=== PATIENT | female | born 1990 | race Caucasian/White ===

== ENCOUNTER 2019-01-04 17:20 | Emergency (ER) | payer SELFPAY ==
[~2019-01-04] VITALS: Ht 165.1 cm; Wt 59.0 kg
[2019-01-04 17:45] LABS: BASO % 1 % (0-3); EOS # 0.2 x10^3/uL (0.0-0.7); EOS % 3 % (0-3); HEMOGLOBIN 12.1 g/dL (12.0-15.5); LYMPH # 1.4 x10^3/uL (1.0-4.8); LYMPH % 23 % (24-48); MEAN CORPUSCULAR HEMOGLOBIN 29 pg (25-35); MEAN CORPUSCULAR HGB CONC 35 g/dL (31-37); MEAN CORPUSCULAR VOLUME 84 fL (79-100); MONO # 0.4 x10^3/uL (0.0-1.1); MONO % 6 % (0-9); NEUT # 3.9 x10^3uL (1.8-7.7); NEUT % 67 % (31-73); PLATELET COUNT 279 x10^3/uL (140-400); RED BLOOD COUNT 4.16 x10^6/uL (3.50-5.40); WHITE BLOOD COUNT 5.9 x10^3/uL (4.0-11.0)
--- NOTE | 2019-01-04 17:46 | PHYS DOC ---
Past Medical History Past Medical History: Hypertension, Migraines, Seizure Past Surgical History: No Surgical History Alcohol Use: None Drug Use: None Adult General Chief Complaint Chief Complaint: SYNCOPE HPI HPI Patient is a 28 year old female with history of migraine headaches, seizures as a child, HTN, who presents to the ED today to be evaluated for a syncope episode. Patient states she was at home with her 5 year old child, she states she doesn't really know what happened but she was walking from her kitchen. She states she became lightheaded, she states the next thing she knew she was laying on the ground with the EMS crew evaluating her. Patient denies any chest pain. She states she has history of migraine headaches and has had a migraine for the last 3 days. She rates the pain is 10 out of 10 but states this is not the worst headache in her life. She is also complaining of photophobia. She states she's had upper respiratory infection symptoms for the last couple days including cough and nasal congestion. Denies any fever. Review of Systems Review of Systems Constitutional: Denies fever or chills [] Eyes: Denies change in visual acuity, redness, or eye pain [] HENT: Reports nasal congestion, denies sore throat [] Respiratory: Reports cough, denies shortness of breath [] Cardiovascular: No additional information not addressed in HPI [] GI: Denies abdominal pain, nausea, vomiting, bloody stools or diarrhea [] : Denies dysuria or hematuria [] Musculoskeletal: Denies back pain or joint pain [] Integument: Denies rash or skin lesions [] Neurologic: Reports migraine headache, syncope, denies focal weakness or sensory changes [] All other systems were reviewed and found to be within normal limits, except as documented in this note. Current Medications Current Medications Current Medications Medications (Trade) Dose Ordered Sig/Anthony Start Time Stop Time Status Last Admin Dose Admin Methylprednisolone Sodium Succinate (SOLU-Medrol 125MG VIAL) 125 mg 1X ONCE 01/04/19 17:45 01/04/19 18:01 DC 01/04/19 18:06 125 MG Sodium Chloride 1,000 ml @ 1,000 mls/hr 1X ONCE 01/04/19 17:30 01/04/19 18:29 DC 01/04/19 18:06 1,000 MLS/HR Allergies Allergies Allergies Coded Allergies Type Severity Reaction Last Updated Verified No Known Drug Allergies 2/7/19 No Physical Exam Physical Exam Constitutional: Well developed, well nourished, no acute distress, non-toxic appearance. [] HENT: Normocephalic, atraumatic, bilateral external ears normal, oropharynx moist, no oral exudates, nose normal. [] Eyes: PERRLA, EOMI, conjunctiva normal, no discharge. [] Neck: Normal range of motion, no tenderness, supple, no stridor. [] Cardiovascular:Heart rate regular rhythm, no murmur [] Lungs & Thorax: Bilateral breath sounds clear to auscultation [] Abdomen: Bowel sounds normal, soft, no tenderness, no masses, no pulsatile masses. [] Skin: Warm, dry, no erythema, no rash. [] Back: No tenderness, no CVA tenderness. [] Extremities: No tenderness, no cyanosis, no clubbing, ROM intact, no edema. [] Neurologic: Alert and oriented X 3, normal motor function, normal sensory function, no focal deficits noted. Cranial nerves II through XII intact Psychologic: Affect normal, judgement normal, mood normal. [] Current Patient Data Vital Signs Vital Signs Date Time Temp Pulse Resp B/P (MAP) Pulse Ox O2 Delivery O2 Flow Rate FiO2 01/04/19 18:21 91 19 161/88 (112) 99 Room Air 01/04/19 17:29 98.4 98.4 Lab Values Laboratory Tests Test 01/04/19 17:40 01/04/19 17:50 01/04/19 18:30 White Blood Count 5.9 x10^3/uL (4.0-11.0) Red Blood Count 4.16 x10^6/uL (3.50-5.40) Hemoglobin 12.1 g/dL (12.0-15.5) Hematocrit 35.0 % (36.0-47.0) L Mean Corpuscular Volume 84 fL (79-100) Mean Corpuscular Hemoglobin 29 pg (25-35) Mean Corpuscular Hemoglobin Concent 35 g/dL (31-37) Red Cell Distribution Width 14.0 % (11.5-14.5) Platelet Count 279 x10^3/uL (140-400) Neutrophils (%) (Auto) 67 % (31-73) Lymphocytes (%) (Auto) 23 % (24-48) L Monocytes (%) (Auto) 6 % (0-9) Eosinophils (%) (Auto) 3 % (0-3) Basophils (%) (Auto) 1 % (0-3) Neutrophils # (Auto) 3.9 x10^3uL (1.8-7.7) Lymphocytes # (Auto) 1.4 x10^3/uL (1.0-4.8) Monocytes # (Auto) 0.4 x10^3/uL (0.0-1.1) Eosinophils # (Auto) 0.2 x10^3/uL (0.0-0.7) Basophils # (Auto) 0.0 x10^3/uL (0.0-0.2) Prothrombin Time 13.0 SEC (11.7-14.0) Prothrombin Time INR 1.0 (0.8-1.1) Sodium Level 141 mmol/L (136-145) Potassium Level 3.4 mmol/L (3.5-5.1) L Chloride Level 105 mmol/L (98-107) Carbon Dioxide Level 26 mmol/L (21-32) Anion Gap 10 (6-14) Blood Urea Nitrogen 9 mg/dL (7-20) Creatinine 0.8 mg/dL (0.6-1.0) Estimated GFR (Cockcroft-Gault) 85.4 BUN/Creatinine Ratio 11 (6-20) Glucose Level 117 mg/dL (70-99) H Calcium Level 9.2 mg/dL (8.5-10.1) Magnesium Level 1.9 mg/dL (1.8-2.4) Total Bilirubin 0.4 mg/dL (0.2-1.0) Aspartate Amino Transferase (AST) 12 U/L (15-37) L Alanine Aminotransferase (ALT) 15 U/L (14-59) Alkaline Phosphatase 63 U/L (46-116) Creatine Kinase 61 U/L (26-192) Creatine Kinase MB (Mass) < 0.5 ng/mL (0.0-3.6) Creatine Kinase MB Relative Index % (0-4) Troponin I Quantitative < 0.017 ng/mL (0.000-0.055) HP-Jjo-N-Type Natriuretic Peptide 173 pg/mL (0-124) H Total Protein 7.5 g/dL (6.4-8.2) Albumin 3.9 g/dL (3.4-5.0) Albumin/Globulin Ratio 1.1 (1.0-1.7) Lipase 119 U/L (73-393) Thyroid Stimulating Hormone (TSH) 0.709 uIU/mL (0.358-3.74) Ethyl Alcohol Level < 10 mg/dL (0-10) Influenza Type A Antigen Negative (NEGATIVE) Influenza Type B Antigen Negative (NEGATIVE) Urine Collection Type Unknown Urine Color Yellow Urine Clarity Clear Urine pH 6.5 Urine Specific [place] 1.010 Urine Protein Negative mg/dL (NEG-TRACE) Urine Glucose (UA) Negative mg/dL (NEG) Urine Ketones (Stick) Negative mg/dL (NEG) Urine Blood Negative (NEG) Urine Nitrite Negative (NEG) Urine Bilirubin Negative (NEG) Urine Urobilinogen Dipstick 0.2 mg/dL (0.2 mg/dL) Urine Leukocyte Esterase Negative (NEG) Urine RBC Occ /HPF (0-2) Urine WBC Occ /HPF (0-4) Urine Squamous Epithelial Cells Few /LPF Urine Bacteria 0 /HPF (0-FEW) Urine Test Negative (NEG) Urine Opiates Screen Neg (NEG) Urine Methadone Screen Neg (NEG) Urine Barbiturates Neg (NEG) Urine Phencyclidine Screen Neg (NEG) Urine Amphetamine/Methamphetamine Neg (NEG) Urine Benzodiazepines Screen Neg (NEG) Urine Cocaine Screen Neg (NEG) Urine Cannabinoids Screen Pos (NEG) Urine Ethyl Alcohol Neg (NEG) Lactic Acid Level 0.6 mmol/L (0.4-2.0) Laboratory Tests 01/04/19 17:40 Laboratory Tests 01/04/19 17:40 EKG EKG [address] Velez sinus rhythm HR 55 no STEMI[] Radiology/Procedures Radiology/Procedures [] Course & Med Decision Making Course & Med Decision Making Pertinent Labs and Imaging studies reviewed. (See chart for details) This is a 28-year-old female patient presenting to the ED today to be evaluated for syncope episode. Patient was home and had a syncope episode. See history of present illness. Also complaining of a migraine headache and lightheadedness. Patient has history of similar migraine headaches. 19:11 Patient signed out AMA because her needs to go to work. Patient was given the risk of leaving AMA including and disability. She proceeded to sign out Dragon Disclaimer Ghass[place] Disclaimer This electronic medical record was generated, in whole or in part, using a voice recognition dictation system. Departure Departure Impression: Primary Impression: Syncope Additional Impression: Migraine headache Disposition: 07 AGAINST MEDICAL ADVICE Condition: STABLE Problem Qualifiers Primary Impression: Syncope Syncope type: unspecified Qualified Codes: R55 - Syncope and collapse Additional Impression: Migraine headache Migraine type: unspecified Status migrainosus presence: without status migrainosus Intractability: not intractable Qualified Codes: G43.909 - Migraine, unspecified, not intractable, without status migrainosus SYBIL GRIGGS APRN Jan 04, 2019 17:46
[2019-01-04 17:54] LABS: CALCIUM 9.2 mg/dL (8.5-10.1); CREATININE 0.8 mg/dL (0.6-1.0); GFR 85.4; POTASSIUM 3.4 mmol/L (3.5-5.1)
[2019-01-04 18:00] LABS: ALBUMIN 3.9 g/dL (3.4-5.0); ALBUMIN/GLOBULIN RATIO 1.1 (1.0-1.7); MAGNESIUM 1.9 mg/dL (1.8-2.4); TOTAL BILIRUBIN 0.4 mg/dL (0.2-1.0); TOTAL PROTEIN 7.5 g/dL (6.4-8.2)
[2019-01-04 18:02] LABS: BILIRUBIN,URINE NEGATIVE (NEG); CLARITY,URINE CLEAR; COLOR,URINE YELLOW; NITRITE,URINE NEGATIVE (NEG); PH,URINE 6.5; PROTEIN,URINE NEGATIVE (NEG-TRACE); UROBILINOGEN,URINE 0.2 mg/dL (0.2 mg/dL)
[2019-01-04] MEDS: IV NORMAL SALINE 1000ML BAG 1,000 ML IV ONE (18:06)
[2019-01-04] MEDS: methylPREDNISolone SOD SUCC PF 125 MG/2 ML VIAL. IV ONE (18:06)
[2019-01-04 18:08] LABS: BARBITURATES NEG (NEG); BENZODIAZEPINES NEG (NEG); CANNABINOIDS POS (NEG); COCAINE NEG (NEG); METHADONE NEG (NEG); OPIATES NEG (NEG); PHENCYCLIDINE NEG (NEG)
[2019-01-04 18:09] LABS: AMPHETAMINE/METHAMPHETAMINE NEG (NEG)
--- NOTE | 2019-01-04 18:11 | RAD ---
PROCEDURE: PORTABLE CHEST 1V CLINICAL INDICATION: syncope COMPARISON: None FINDINGS: No pneumothorax identified. Cardiac and mediastinal contours unremarkable. No pulmonary consolidation or acute airspace disease. No acute osseous abnormalities identified. IMPRESSION: No pulmonary consolidation or acute airspace disease. Electronically signed by: Kendall Jensen DO (01/04/2019 6:06 PM) [facility]
[2019-01-04 18:14] LABS: CREATINE KINASE 61 U/L (26-192)
[2019-01-04 18:18] LABS: BACTERIA,URINE 0 /HPF (0-FEW); RBC,URINE OCC /HPF (0-2); SQUAMOUS EPITHELIAL CELL,UR FEW /LPF; WBC,URINE OCC /HPF (0-4)
[2019-01-04 18:18] LABS: INFLUENZA A PATIENT NEGATIVE (NEGATIVE); INFLUENZA B PATIENT NEGATIVE (NEGATIVE)
[2019-01-04 18:21] VITALS: BP 161/88
[2019-01-04 18:50] LABS: U PREG PATIENT NEGATIVE (NEG)
--- NOTE | 2019-01-04 19:32 | RAD ---
CT brain without contrast. HISTORY: Syncope, possible seizure CT scan of the brain was done without contrast. There is mild mucosal thickening in the ethmoid sinuses. A skull fracture is not identified. There is no intracranial hemorrhage or subdural hematoma. There is no mass or shift of the midline. An acute CVA is not identified. Ventricles are normal in size. IMPRESSION: 1. No intracranial hemorrhage or acute finding noted. PQRS Compliance Statement: One or more of the following individualized dose reduction techniques were utilized for this examination: 1. Automated exposure control 2. Adjustment of the mA and/or kV according to patient size 3. Use of iterative reconstruction technique Electronically signed by: Benny Rasheed MD (01/04/2019 7:28 PM) [facility]
--- NOTE | 2019-01-04 23:27 | EKG ---
[facility] [address] [place] [address] Test Date: 2019-01-04 Test Time: 17:27:05 Pat Name: RADHA WONG Department: Room: Gender: F Addictions Counselor Assistant: : 1990 Requested By: SYBIL GRIGGS Order Number: [id number] Reading MD: Measurements Intervals [place] Rate: 55 P: 38 AL: 126 QRS: 47 QRSD: 88 T: 45 QT: 428 QTc: 412 Interpretive Statements SINUS RHYTHM NORMAL ECG RI6.01 No previous ECG available for comparison
== END 2019-01-04 19:23 | disposition left against medical advice (07) ==
LOC: ER 17:20
DX: G43.909 Migraine, unspecified, not intractable, without status migrainosus (principal); R55 Syncope and collapse; R42 Dizziness and giddiness; R05 Cough; R09.81 Nasal congestion
CPT/HCPCS: 36415; 70450; 71045; 80053; 80307; 81001; 81025; 82553; 83605; 83690; 83735; 83880; 84443; 84484; 85025; 85610; 87804; 93005; 96361; 96374; 99284; G0480; J2930; J7030